=== PATIENT | male | born 1975 | race African-American/Black ===

== ENCOUNTER 2019-04-28 11:43 | Observation (INO) ==
[2019-04-28] MEDS ORDERED: ASPIRIN PO ONE (11:58)
[2019-04-28] MEDS ORDERED: CARDIZEM IV ONE (11:58)
[2019-04-28] MEDS ORDERED: NITROGLYCERIN TOP ONE (11:58)
[2019-04-28] MEDS ORDERED: LOPRESSOR PO ONE (11:58)
--- NOTE | 2019-04-28 12:04 | EKG Report ---
Test Performed on : 04/28/2019 11:42:21 AM Test Reason : cp Blood Pressure : / mmHG Vent. Rate : 125 BPM Atrial Rate : 119 BPM P-R Int : 000 ms QRS Dur : 090 ms QT Int : 282 ms P-R-T Axes : 000 -45 030 degrees QTc Int : 407 ms Atrial fibrillation. with rapid ventricular response. Pulmonary disease pattern Left anterior fascicular block Abnormal ECG No previous ECGs available Unconfirmed Result
[2019-04-28 12:14] LABS: BASO# 0.06 X1000 (0.0-0.2); BASO% 0.5 % (0.0-0.8); EOS# 0.14 X1000 (0.0-0.7); EOS% 1.2 % (0.0-10.0); HEMATOCRIT 51.8 % (42.0-52.0); HEMOGLOBIN 16.7 g/dL (14.0-18.0); IMM GRAN# 0.05 X1000 (0.0-0.04); IMM GRAN% 0.4 % (0.0-0.5); LYMPH# 4.61 X1000 (1.2-3.4); LYMPH% 39.6 % (20.5-51.1); MCH 25.7 PG (27-31); MCHC 32.2 g/dL (33-37); MCV 79.7 FL (81-99); MONO# 1.28 X1000 (0.11-0.59); MPV 9.5 FL (7.4-10.4); NEUT% 47.3 % (42.2-75.2); PLT 319 X1000 (130-400); RDW 14.6 % (11.5-14.5); WBC 11.64 X1000 (4.8-10.8)
--- NOTE | 2019-04-28 12:19 | Diag Imaging Result Doc PS360 ---
CHEST-PORTABLE - 04/28/2019 INDICATION: cp COMPARISON: 01/24/2011 FINDINGS: There is a trace area of linear atelectasis in the left midlung. The lungs are clear. Heart size is normal. No pneumothorax or pleural effusion. IMPRESSION: No acute disease. Electronically signed by Kris Gomez 04/28/2019 12:17 PM
[2019-04-28 12:23] LABS: URINE SOURCE CLEAN CATCH
[2019-04-28 12:23] LABS: INR 0.91; PROTIME 12.4 Seconds (11.0-16.0)
[2019-04-28 12:26] LABS: AGAP 12; ALB/GLOB RATIO 1.3; ALBUMIN 4.3 g/dL (3.5-5.0); ALKALINE PHOSPHATASE 79 U/L (32-122); BUN 9 mg/dL (8-22); CALCIUM 9.6 mg/dL (8.8-10.2); CHLORIDE 103 mmol/L (98-107); COSMO 278; CREATININE 1.1 mg/dL (0.7-1.2); ESTIMATED GFR > 60; GLUCOSE 91 mg/dL (70-104); GOT 24 U/L (10-34); GPT 40 U/L (10-44); SODIUM 140 mmol/L (136-145); TCO2 25 mmol/L (25-35); TOTAL BILIRUBIN 0.47 mg/dL (0.20-1.00); TOTAL PROTEIN 7.5 g/dL (6.3-8.3)
[2019-04-28 12:29] LABS: CK PROFILE 381 U/L (24-204)
[2019-04-28 12:33] LABS: BILIRUBIN URINE NEGATIVE (NEGATIVE); BLOOD URINE NEGATIVE (NEGATIVE); COLOR YELLOW; GLUCOSE URINE NEGATIVE (NEGATIVE); KETONE URINE NEGATIVE (NEGATIVE); LEUKOCYTES URINE NEGATIVE (NEGATIVE); NITRITE URINE NEGATIVE (NEGATIVE); PH URINE 6.5; PROTEIN URINE NEGATIVE (NEGATIVE); SP GRAVITY URINE 1.014; TURBIDITY URINE CLEAR (CLEAR); UR EPITHELIAL CELLS <10 /HPF (<10); URINE BACTERIA NEGATIVE /HPF; URINE RBC <10 /HPF (<10); URINE WBC <10 /HPF (<10); UROBILINOGEN URINE NORMAL (NORMAL)
[2019-04-28 12:35] LABS: UR AMPHETAMINES QUAL NONE DETECTED (NONE DETECT); UR BARBITUATES QUAL NONE DETECTED (NONE DETECT); UR BENZODIAZEPIN QUAL NONE DETECTED (NONE DETECT); UR CANNABINOIDS QUAL NONE DETECTED (NONE DETECT); UR COCAINE QUAL NONE DETECTED (NONE DETECT); UR METHADONE QUAL NONE DETECTED (NONE DETECT); UR OPIATES QUAL NONE DETECTED (NONE DETECT); UR OXYCODONE QUAL NONE DETECTED (NONE DETECT); UR PCP QUAL NONE DETECTED (NONE DETECT)
[2019-04-28 12:54] LABS: CK INDEX 0.4 (0.0-2.5); CK-MB 1.61 ng/mL (0.0-5.0)
[2019-04-28] MEDS ORDERED: LOVENOX 1 MG/KG SUBQ ONE (13:30)
[2019-04-28] MEDS ORDERED: TYLENOL PO ONE (13:46)
--- NOTE | 2019-04-28 13:49 | PROVIDER DOCUMENTATION ---
This chart was entered by Chacha Elizalde Scribe, acting as scribe for Juma Mason MD. HPI-Cardiac General - General Chief Complaint: Palpitations Stated Complaint: CHEST PAIN Time Seen by Provider: 04/28/19 11:50 Source: patient Allergies/Adverse Reactions: Patient Allergies Allergy/AdvReac Type Severity Reaction Status Date / Time No Known Allergies Allergy Verified 04/28/19 11:55 Home Medications: Home Medication List Medication Instructions Recorded Confirmed Last Taken Type Cyclobenzaprine [Flexeril] 10 mg PO TID #12 tablet 09/24/12 Unknown Rx Ketorolac [Toradol] 10 mg PO Q6H PRN PRN #15 tablet 09/24/12 Unknown Rx Hydrocodone/APAP 5 mg/325 mg 1 ea PO Q6H PRN PRN #12 tab 08/17/18 Unknown Rx [[place]-5] Methocarbamol [Robaxin] 500 mg PO TID PRN #20 tab 08/17/18 Unknown Rx Naproxen [Naprosyn] 500 mg PO BID #20 tab 08/17/18 Unknown Rx - History of Present Illness-Cardiac Nature of Presenting Problem: 44yom presents to ED cc heart palpitations, SOB while at work this morning and elevated blood pressure for 1 week. Pt reports he saw his PCP last week for elevated b/p and was given hydrochlorthiazide, has been keeping track of b/p and it was trending down but today at work he felt his heart beating hard, he got lightheaded and SOB so he came to ED. Pt denies drugs or energy drinks. Location: reports: central Quality of Pain: reports: pressure, tightness Severity in ED: moderate Onset/Duration: this morning Timing: still present Context/Activities at Onset: reports: moderate activity (was at work) Modifying Factors: improves with: nothing Palpitation Quality: irregular History of arrythmia: reports: none Recent use of:: reports: caffeine (drank 1 coke this morning) Nitro Today/Relief: reports: provided by ED (nitro paste) Aspirin Treatment Today: reports: 325 mg x 1, provided by ED Prior Chest Pain/Cardiac Workup: reports: no prior chest pain Associated Symptoms: reports: shortness of breath Similar Symptoms Previously?: No Recently Seen Here or By Another Healthcare Provider: Yes (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 denies: chills, fever Eyes: reports: no symptoms reported Ears, Nose, Mouth & Throat: reports: no symptoms reported Cardiovascular: reports: see HPI, chest pain, irregular heart rate, palpitations Respiratory: reports: see HPI, shortness of breath. denies: cough, wheezing Gastrointestinal: reports: no symptoms reported Genitourinary: reports: no symptoms reported Musculoskeletal: reports: no symptoms reported Integumentary: reports: no symptoms reported Neurological: reports: see HPI, dizziness/vertigo Psychiatric: reports: no symptoms reported Endocrine: reports: no symptoms reported Hematologic/Lymphatic: reports: no symptoms reported Allergic/Immunologic: reports: no symptoms reported All Other Systems: Reviewed and Negative Past History - Adult - PAST MEDICAL HISTORY-ADULT Review of Records: reports: Nursing Assessment Review, Medications Reviewed, Social history reviewed & non-contributory. Major Childhood Illnesses: reports: denies history Cardiovascular: reports: denies history Respiratory: reports: denies history Gastrointestinal: reports: denies history Obstetrical/Gynecological: reports: denies history Genitourinary: reports: denies history Musculoskeletal: reports: denies history Neurological: reports: denies history Endocrine/Immune: reports: denies history Other Conditions: reports: denies history - IMMUNIZATION STATUS Childhood Immunizations: See Nurse Assessment Flu Vaccine: See Nurse Assessment - FAMILY HISTORY Family History: reviewed, not pertinent - SOCIAL HISTORY Smoking: cigarettes, greater than 1 pack/day Provider spent 3-5 mins advising pt. on dangers of tobacco.: Discussed manners to quit use, and f/u contacts for add'l counseling. Physical Exam-General - PHYSICAL EXAM-ADULT Initial Vital Signs Reviewed: Yes - CONSTITUTIONAL General Appearance: appears well, alert. negative: anxious, combative - EYES Eyes: PERRL/EOMI, pink conjunctivae. negative: photophobia - HEAD, EARS, NOSE, MOUTH & THROAT HENMT: normocephalic/atraumatic, moist mucous membranes. negative: angioedema - RESPIRATORY Respiratory: chest non-tender, lungs clear, normal breath sounds. negative: stridor, wheezing - CARDIOVASCULAR Cardiovascular: normal peripheral pulses, no edema, tachycardia, irregularly irregular. negative: bradycardia - MUSCULOSKELETAL Extremity: normal inspection. negative: deformity - SKIN Integumentary: normal color. negative: diaphoresis, jaundice - PSYCHIATRIC Psych/Mental Status: normal mood/affect, oriented x 3. negative: anxious, disheveled - HEART Score HEART Score: History: Slightly Suspicious HEART Score: ECG: Non-Specific Repolarization Disturbance/LBBB/PM HEART Score: Age: < or = 45 Years HEART Score: Risk Factors for Atherosclerotic Disease: 1 or 2 Risk Factors HEART Score: Troponin: < or = Normal Limit Total HEART Score:: 2 Progress - PLAN OF CARE/RESULTS Progress/Plan/Lab Results: Vital Signs - 8 hr 04/28/19 11:49 04/28/19 11:50 04/28/19 11:53 Temperature 97.8 F Pulse Rate 139 H 130 H Respiratory Rate 26 H 22 Blood Pressure 134/79 134/79 O2 Sat by Pulse Oximetry 99 99 99 04/28/19 12:00 04/28/19 12:03 04/28/19 12:11 Temperature Pulse Rate 132 H 123 H 135 H Respiratory Rate 27 H 19 22 Blood Pressure 160/88 157/93 O2 Sat by Pulse Oximetry 100 100 99 04/28/19 12:15 04/28/19 12:30 Temperature Pulse Rate 144 H 93 H Respiratory Rate 23 Blood Pressure O2 Sat by Pulse Oximetry 95 96 Laboratory Results - last 24 hr 04/28/19 04/28/19 04/28/19 11:52 11:52 11:52 WBC 11.64 H RBC 6.50 H Hgb 16.7 Hct 51.8 MCV 79.7 L MCH 25.7 L MCHC 32.2 L RDW Std Deviation 14.6 H Plt Count 319 MPV 9.5 Immature Gran % (Auto) 0.4 Neut % (Auto) 47.3 Lymph % (Auto) 39.6 Lane % (Auto) 11.0 H Eos % (Auto) 1.2 Baso % (Auto) 0.5 Immature Gran # (Auto) 0.05 H Neut # (Auto) 5.50 Lymph # (Auto) 4.[address] # (Auto) 1.28 H Eos # (Auto) 0.14 Baso # (Auto) 0.06 PT INR Sodium Potassium Chloride Carbon Dioxide Anion Gap BUN Creatinine Estimated GFR/1.73 m2 BUN/Creatinine Ratio Glucose Calculated Osmolality Calcium Magnesium Total Bilirubin AST ALT Alkaline Phosphatase Creatine Kinase Creatine Kinase Index CK-MB (CK-2) Troponin T [id number] Pept Total Protein Albumin Globulin Albumin/Globulin Ratio TSH 0.89 Urine Source Urine Color Urine Turbidity Urine pH Ur Specific Reserve Urine Protein Ur Glucose (Stick) Ur Ketones (Stick) Urine Blood Urine Nitrite Urine Bilirubin Urobilinogen Dipstick Urine Leukocytes Urine WBC (Auto) Urine RBC (Auto) U Epithel Cells (Auto) Urine Bacteria (Auto) Urine Opiates Screen Ur Oxycodone Screen Ur Methadone, Qual Ur Barbiturates Screen Ur Phencyclidine Scrn Ur Amphetamines Screen U Benzodiazepines Scrn Urine Cocaine Screen U Cannabinoids Screen Plasma/Serum Ethyl Alc 04/28/19 04/28/19 04/28/19 11:52 11:52 11:52 WBC RBC Hgb Hct MCV MCH MCHC RDW Std Deviation Plt Count MPV Immature Gran % (Auto) Neut % (Auto) Lymph % (Auto) Lane % (Auto) Eos % (Auto) Baso % (Auto) Immature Gran # (Auto) Neut # (Auto) Lymph # (Auto) Lane # (Auto) Eos # (Auto) Baso # (Auto) PT 12.4 INR 0.91 Sodium 140 Potassium 4.0 Chloride 103 Carbon Dioxide 25 Anion Gap 12 BUN 9 Creatinine 1.1 Estimated GFR/1.73 m2 > 60 BUN/Creatinine Ratio 8 Glucose 91 Calculated Osmolality 278 Calcium 9.6 Magnesium 2.0 Total Bilirubin 0.47 AST 24 ALT 40 Alkaline Phosphatase 79 Creatine Kinase 381 H Creatine Kinase Index 0.4 CK-MB (CK-2) 1.61 Troponin T [id number] Pept < 5 L Total Protein 7.5 Albumin 4.3 Globulin 3.2 Albumin/Globulin Ratio 1.3 TSH Urine Source Urine Color Urine Turbidity Urine pH Ur Specific Reserve Urine Protein Ur Glucose (Stick) Ur Ketones (Stick) Urine Blood Urine Nitrite Urine Bilirubin Urobilinogen Dipstick Urine Leukocytes Urine WBC (Auto) Urine RBC (Auto) U Epithel Cells (Auto) Urine Bacteria (Auto) Urine Opiates Screen Ur Oxycodone Screen Ur Methadone, Qual Ur Barbiturates Screen Ur Phencyclidine Scrn Ur Amphetamines Screen U Benzodiazepines Scrn Urine Cocaine Screen U Cannabinoids Screen Plasma/Serum Ethyl Alc 04/28/19 04/28/19 04/28/19 11:52 12:20 12:20 WBC RBC Hgb Hct MCV MCH MCHC RDW Std Deviation Plt Count MPV Immature Gran % (Auto) Neut % (Auto) Lymph % (Auto) Lane % (Auto) Eos % (Auto) Baso % (Auto) Immature Gran # (Auto) Neut # (Auto) Lymph # (Auto) Lane # (Auto) Eos # (Auto) Baso # (Auto) PT INR Sodium Potassium Chloride Carbon Dioxide Anion Gap BUN Creatinine Estimated GFR/1.73 m2 BUN/Creatinine Ratio Glucose Calculated Osmolality Calcium Magnesium Total Bilirubin AST ALT Alkaline Phosphatase Creatine Kinase Creatine Kinase Index CK-MB (CK-2) Troponin T < 0.010 [id number]-Iglgygrsouu Pept Total Protein Albumin Globulin Albumin/Globulin Ratio TSH Urine Source CLEAN CATCH Urine Color YELLOW Urine Turbidity CLEAR Urine pH 6.5 Ur Specific Reserve 1.014 Urine Protein NEGATIVE Ur Glucose (Stick) NEGATIVE Ur Ketones (Stick) NEGATIVE Urine Blood NEGATIVE Urine Nitrite NEGATIVE Urine Bilirubin NEGATIVE Urobilinogen Dipstick NORMAL Urine Leukocytes NEGATIVE Urine WBC (Auto) <10 Urine RBC (Auto) <10 U Epithel Cells (Auto) <10 Urine Bacteria (Auto) NEGATIVE Urine Opiates Screen NONE DETECTED Ur Oxycodone Screen NONE DETECTED Ur Methadone, Qual NONE DETECTED Ur Barbiturates Screen NONE DETECTED Ur Phencyclidine Scrn NONE DETECTED Ur Amphetamines Screen NONE DETECTED U Benzodiazepines Scrn NONE DETECTED Urine Cocaine Screen NONE DETECTED U Cannabinoids Screen NONE DETECTED Plasma/Serum Ethyl Alc Orders Category Date Time Status Nursing- Obtain EKG once Care 04/28/19 11:57 Active Nursing- Obtain EKG once Care 04/28/19 13:27 Active Saline Loc NOW Care 04/28/19 11:57 Active CHEST-PORTABLE [RAD] Stat Exams 04/28/19 11:58 Completed ALCOHOL BLOOD Stat Lab 04/28/19 11:52 Completed CBC WITH ELECTRONIC DIFF [HEME] Stat Lab 04/28/19 11:52 Completed CK PROFILE [SP CHEM] Stat Lab 04/28/19 11:52 Completed COMPREHENSIVE METABOLIC PANEL [CHEM] Stat Lab 04/28/19 11:52 Completed MAGNESIUM [CHEM] Stat Lab 04/28/19 11:52 Completed PRO B-NATRIURETIC PEPTIDE Stat Lab 04/28/19 11:52 Completed PROTIME WITH INR [COAG] Stat Lab 04/28/19 11:52 Completed TROPONIN T Stat Lab 04/28/19 11:52 Completed TSH Stat Lab 04/28/19 11:52 Completed URINALYSIS W/POSS RFLX CULT [URINALYSIS] Stat Lab 04/28/19 12:20 Completed URINE DRUG SCREEN Stat Lab 04/28/19 12:20 Completed Acetaminophen [Tylenol] Med 04/28/19 13:46 Once 1,000 mg PO NOW ONE Aspirin Med 04/28/19 11:58 Discontinued 325 mg PO NOW ONE Diltiazem [Cardizem] Med 04/28/19 11:58 Discontinued 25 mg IV NOW ONE Enoxaparin 1 mg/kg [Lovenox 1 mg/kg] Med 04/28/19 13:30 Discontinued 1 each SUBQ NOW ONE Metoprolol [Lopressor] Med 04/28/19 11:58 Discontinued 25 mg PO NOW ONE Nitroglycerin Med 04/28/19 11:58 Discontinued 0.5 inch TOP NOW ONE EKG [EKG] Stat Ther 04/28/19 11:57 Draft EKG [EKG] Stat Ther 04/28/19 13:27 Ordered Result Diagrams: 04/28/19 11:52 04/28/19 11:52 - REASSESSMENT Reassessment #1 Time Reassessed: 13:47 Status: improving (Afib rate is controlled, but he is still in AFIB, despite IV cardizem and po metoprolol. Also given ASA po and Nitropaste. Given tylenol for NTG headache. Given SubQ Lovenox) - EKG 1 Time of EKG reading by physician:: 11:59 EKG Read and Signed by:: Juma Mason EKG Interpretation (*Must complete 3 of following elements*): Abnormal (left anterior fascicular block) Rate: 125 Rhythm: Afib w/ RVR [place]: normal QRS: other OK Interval: normal ST Wave: normal Prior EKG Comparison: no prior EKG - XRAY 1 XRAY: Bilateral XRAY Study: Chest Impression: See EMR Report (IMPRESSION: No acute disease. Electronically signed by Kris Gomez 04/28/2019 12:17 PM) - CONSULTS/PCP/HOSPITALIST Notification #1 *Consult/PCP/Hospitalist*: Marlyn/[employer] for Hospitalist paged at [phone]; returned at [phone] Consult Disposition: Admit (accpeted pt) Departure - Departure Date of Disposition Decision: 04/28/19 Time of Disposition Decision: 13:42 DIAGNOSIS: Chest pain of uncertain etiology, New onset a-fib, Atrial fibrillation with rapid ventricular response, Tobacco use disorder Disposition: ADMITTED INPATIENT 09 Certified Medical Emergency: Emergent Condition: Fair Additional Freetext Instructions: ED Follow Up Instructions: You have been treated by a care provider in the Emergency Department. These instructions are being provided to you so you can have an understanding of how to care for yourself upon discharge. Upon discharge from the Emergency Department, you are responsible for making arrangements for follow-up care by a physician of your choice. Take all prescribed medications as directed. Return to the Emergency Department immediately for any new or worsening symptoms. You may call the Physician Referral phone number at [phone] to obtain a list of Physicians who are taking new patients. Referrals and Follow-Ups: Gee Jiménez MD [Primary Care Provider] - Discharge Education: Steps to Quit Smoking, [id number] - Critical Care Note This patient required my direct & personal management of CC.: Yes Total Time (mins): 35 Critical Care Statement: This patient required my direct personal management to treat or rule out processes, the absence of which, could potentiallly result in sudden, clinically significant life or limb threatening deterioration. Attestation - Physician/ PAOLA Attestation Patient care was provided by Advanced Practice Provider:: No The physician spent face to face time with patient:: Yes Advanced Practice Provider documentation review:: Supervising physician onsite and consulted in the evaluation and care of this patient. The physician did have a face to face encounter with the patient. This chart was documented by the indicated scribe, (Chacha Elizalde Scribe) and accurately reflects the services I performed and decisions made by me, Juma Mason MD, as attested by the provider's signature.
--- NOTE | 2019-04-28 14:03 | ED EKG INTERP ---
EKG Interpretation - EKG Time of EKG reading by physician:: 14:02 EKG Read and Signed by:: Juma Mason EKG Interpretation (*Must complete 3 of following elements*): Normal Rate: 70 Rhythm: NSR - rhythm just converted [place]: left QRS: normal [place] Interval: normal ST Wave: normal Prior EKG Comparison: changes noted Attestation - Physician/ PAOLA Attestation Patient care was provided by Advanced Practice Provider:: No The physician spent face to face time with patient:: Yes Advanced Practice Provider documentation review:: Supervising physician onsite and consulted in the evaluation and care of this patient. The physician did have a face to face encounter with the patient.
[2019-04-28] MEDS ORDERED: LOVENOX SUBQ ONE (14:15)
--- NOTE | 2019-04-28 14:15 | EKG Report ---
Test Performed on : 04/28/2019 1:55:15 PM Test Reason : rhythm check Blood Pressure : / mmHG Vent. Rate : 070 BPM Atrial Rate : 070 BPM P-R Int : 180 ms QRS Dur : 090 ms QT Int : 404 ms P-R-T Axes : 019 -38 015 degrees QTc Int : 436 ms Normal sinus rhythm. Left axis deviation Abnormal ECG When compared with ECG of 28-APR-2019 11:42, (Unconfirmed) Sinus rhythm. has replaced Atrial fibrillation. Vent. rate has decreased BY 55 BPM Unconfirmed Result
[2019-04-28] MEDS ORDERED: TYLENOL PO PRN (15:42)
[2019-04-28] MEDS ORDERED: ZOFRAN IV PRN (15:42)
--- NOTE | 2019-04-28 16:50 | HISTORY AND PHYSICAL ---
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 He described it as kind of a dull pressure pain in his throat, kind of radiated down the middle of the sternum. Denied any radiation to his left arm or shoulder. He did have diaphoresis and he felt his heart was beating hard. Chest pain seemed to resolve in about 30 minutes. They called the paramedics and he was brought here. He has no further chest pain. PAST MEDICAL HISTORY: Really unremarkable except for: 1. Hypertension. 2. Apparently treated for gastric ulcers last year. PAST SURGICAL HISTORY: No surgical history. ALLERGIES: No known drug allergies. FAMILY HISTORY: He is not aware of any medical issues, especially with heart problems. SOCIAL HISTORY: Works. He says he drinks occasional alcohol. REVIEW OF SYSTEMS: General: No weight gain or loss. No fever or chills. HEENT: Unremarkable. Respiratory: No increased work of breathing or dyspnea. Cardiovascular: No chest pain or tachy palpitation GI/: Unremarkable. Musculoskeletal/Neurologic: No significant complaints. Endocrinologic/hemologic: No significant history. PHYSICAL EXAMINATION: VITAL SIGNS: Temperature 97.8 degrees, pulse 68, respirations 24, and blood pressure 102/56. Weight 195 pounds. Height 5 feet 7 inches. HEENT: Pupils are equal and round. LUNGS: Clear in all lung burgos. NECK: CVP less than 6 cm. CARDIOVASCULAR: Regular rhythm and rate without murmur or S3. ABDOMEN: Soft, nondistended. VASCULAR: Carotid, radial, femoral pulses 2+ and symmetrical. Note, his pulse felt regular. SKIN: Warm and dry. DIAGNOSTIC STUDIES: His EKG shows atrial fibrillation and so he is in atrial fibrillation and he did have a rapid ventricular response about 1:30. LABORATORY DATA: White count 11,640, hematocrit is 51, platelet count 319,000. Sodium 140, potassium 4.0, chloride 103, BUN 12, creatinine 1.1, magnesium 2.0. AST 24, ALT is 40, alkaline phosphatase is 79. ProBNP was less than 5. Troponin less than 0.01. Urine drug screen was negative. Urinalysis unremarkable. Chest x-ray, no acute disease. ASSESSMENT AND PLAN: 1. Chest pain which he does have some risk factors. It did happen during exertion. So we will check serial cardiac enzymes and EKGs. 2. Atrial fibrillation. Apparently new onset, not sure how long it has been going on. We will put him on a little bit of beta rudi at this time, metoprolol 25 mg q.12. Ask cardiology to help. 3. History of hypertension. Blood pressure at present 102/56. We will put him on an aspirin. Consider testing for coronary insufficiency. cc: Robin Dennison MD
--- NOTE | 2019-04-28 17:02 | CARDIOLOGY CONSULTATION ---
DATE: 04/28/2019 HISTORY OF PRESENT ILLNESS: This 44-year-old -[place] gentleman has a history of hypertension. In the last 1 year he has been having episodes of headaches with hypertension as well. Was started on hydrochlorothiazide and his blood pressure was better. Today he had an episode of palpitations and chest discomfort which he describes as a pressure- like sensation with a squeezing sensation radiating to his neck and jaw. He also had palpitations and anxiety. He came to the emergency room, was noted to be in atrial fibrillation with rapid ventricular rate. Was given diltiazem IV and Lopressor p.o. He is back in sinus rhythm. His electrocardiogram revealed normal sinus rhythm with J-point elevation noted in V1, V2. His first set of cardiac enzymes were negative. Prior to this episode he has not had any exertional component of chest pain. He has been otherwise very active. He has not had palpitations before either. He smokes about a pack of cigarettes a day. There is no history of alcohol or illicit drug abuse. REVIEW OF SYSTEM: A 14-point review of systems was done. GI System: There is no history of nausea, vomiting, diarrhea. There is no history of hematemesis or melena. Central nervous system: No focal weakness to suggest a CVA or TIA. system: There is no dysuria or hematuria. Respiratory system: There is no history of cough, expectoration, hemoptysis. There is no history of fevers or chills. PAST MEDICAL HISTORY: Recent diagnosis of hypertension. PHYSICAL EXAMINATION: Vital Signs: Blood pressure at the present time was 136/101, subsequently after medication blood pressure 102/56. Cardiovascular system: First and second heart sounds were heard. There was no S3 gallop. Respiratory System: Normal air entry. There are no crepitations or rhonchi. Abdomen: Soft, nontender. There was no guarding or rigidity. Bowel sounds were heard. Central nervous system: Alert and oriented. Was moving all 4 extremities. Extremities: Examination of extremities revealed no pedal edema. HEENT: Atraumatic, normocephalic. Pupils were equal and reacting to light. LABORATORY: Sodium 140, potassium 4.0, BUN 9, creatinine 1.1. First set of cardiac enzymes are negative. TSH 0.89. Urine and tox screen was negative. Hematology: WBC 11.64, hemoglobin 16.7, hematocrit 51, platelet count of 319,000. ASSESSMENT AND PLAN: Mr. Edmund Joy is a 44-year-old Afro-[place] gentleman with a history of hypertension, comes with complaints of having chest discomfort and palpitations, was noted to be in atrial fibrillation. Reverted to sinus rhythm with Cardizem and beta- rudi. First set of cardiac enzymes were negative. His electrocardiogram was abnormal with J-point elevation in V1, V2. He is not having any chest pain at the present time. PLAN: 1. We will do serial cardiac enzymes. 2. We will get an echocardiogram. Please see detailed report. There is mild LV dysfunction noted. Given this, we will start him on Cozaar 50 mg a day. 3. If cardiac enzymes are negative we will plan for a Cardiolite stress test to assess for and rule out ischemia. I suspect his LV dysfunction could be secondary to his untreated hypertension. His blood pressure had gone up to 170 recently. Thank you for the consult. We will follow hospital course. cc: Harry Rhodes MD MTDJake
[2019-04-28] MEDS: LOPRESSOR PO SCH (21:13)
[2019-04-28 22:03] LABS: CK INDEX 0.6 (0.0-2.5); CK-MB 1.6 ng/mL (0.0-5.0)
[2019-04-29 03:42] LABS: INR 0.91; PROTIME 12.3 Seconds (11.0-16.0)
[2019-04-29 03:43] LABS: PTT 35.7 Seconds (22.3-41.8)
[2019-04-29 04:01] LABS: AGAP 10; ALB/GLOB RATIO 1.7; ALBUMIN 4.1 g/dL (3.5-5.0); ALKALINE PHOSPHATASE 98 U/L (32-122); BUN 13 mg/dL (8-22); CALCIUM 9.3 mg/dL (8.8-10.2); CHLORIDE 102 mmol/L (98-107); COSMO 279; CREATININE 1.3 mg/dL (0.7-1.2); ESTIMATED GFR > 60; GLUCOSE 127 mg/dL (70-104); GOT 21 U/L (10-34); GPT 39 U/L (10-44); POTASSIUM 4.1 mmol/L (3.5-5.1); SODIUM 139 mmol/L (136-145); TCO2 27 mmol/L (25-35); TOTAL BILIRUBIN 0.24 mg/dL (0.20-1.00); TOTAL PROTEIN 6.5 g/dL (6.3-8.3)
[2019-04-29 04:07] LABS: BASO# 0.08 X1000 (0.0-0.2); BASO% 0.8 % (0.0-0.8); EOS# 0.15 X1000 (0.0-0.7); EOS% 1.5 % (0.0-10.0); HEMATOCRIT 49.3 % (42.0-52.0); HEMOGLOBIN 15.9 g/dL (14.0-18.0); IMM GRAN# 0.03 X1000 (0.0-0.04); IMM GRAN% 0.3 % (0.0-0.5); LYMPH# 4.23 X1000 (1.2-3.4); LYMPH% 42.5 % (20.5-51.1); MCH 25.9 PG (27-31); MCHC 32.3 g/dL (33-37); MCV 80.3 FL (81-99); MONO# 0.86 X1000 (0.11-0.59); MONO% 8.6 % (1.7-9.3); MPV 9.3 FL (7.4-10.4); NEUT% 46.3 % (42.2-75.2); PLT 304 X1000 (130-400); RBC 6.14 XMIL (4.7-6.1); RDW 14.3 % (11.5-14.5); WBC 9.95 X1000 (4.8-10.8)
[2019-04-29 05:10] LABS: CK INDEX 0.7 (0.0-2.5); CK-MB 1.61 ng/mL (0.0-5.0)
[2019-04-29] MEDS ORDERED: LOVENOX SUBQ SCH (08:00)
--- NOTE | 2019-04-29 08:31 | ECHO REPORT ---
ORDER DATE: 04/28/2019 MEASUREMENTS: Septal thickness 1.3, left ventricular internal diameter in diastole 5.0, posterior wall thickness 1.2, left ventricular internal diameter in systole 4.1, aortic root 3.1, left atrium 2.7. SUMMARY: 1. Fair quality study. 2. Aortic valve is trileaflet and opens normally on 2-dimensional images. Peak gradient across the aortic valve is less than 5 mmHg. Mitral, tricuspid, and pulmonic valves are without evidence of structural abnormality, with trace tricuspid regurgitation. The aortic root is normal in size. 3. Normal left ventricular chamber size with mild concentric left ventricular hypertrophy is demonstrated. Estimated left ventricular ejection fraction is approximately 35% in the setting of global hypokinesis. Left atrium, right atrium, right ventricle are normal in size with grossly preserved right ventricular systolic function. 4. Small posterior pericardial effusion is demonstrated, without echocardiographic evidence of hemodynamic impact. 5. Appearance of inferior vena cava suggests normal central venous pressure. CONCLUSIONS: 1. No significant valvular abnormality evident. 2. Mild concentric left ventricular hypertrophy with estimated left ventricular ejection fraction of approximately 35% in the setting of global hypokinesis. 3. Small posterior pericardial effusion. cc: MD Marlyn Huertas CRNP
--- NOTE | 2019-04-29 08:34 | EKG Report ---
Test Performed on : 04/29/2019 07:25:24 AM Test Reason : chest pain Blood Pressure : / mmHG Vent. Rate : 066 BPM Atrial Rate : 066 BPM P-R Int : 178 ms QRS Dur : 090 ms QT Int : 410 ms P-R-T Axes : 033 -41 018 degrees QTc Int : 429 ms Normal sinus rhythm. Left axis deviation Abnormal ECG When compared with ECG of 28-APR-2019 13:55, (Unconfirmed) No significant change was found Confirmed by Abdirashid JOHNSON, Rusty Arreguin ([id number]) on 04/30/2019 7:42:22 AM
[2019-04-29] MEDS ORDERED: COZAAR PO SCH (09:00)
[2019-04-29] MEDS ORDERED: ASPIRIN PO SCH (09:00)
[2019-04-29 11:39] VITALS: BP 138/75
[2019-04-29] MEDS: LOPRESSOR PO SCH (12:07)
[2019-04-29] MEDS ORDERED: FLU VACCINE IM ONE (14:01)
--- NOTE | 2019-04-29 14:42 | Diag Imaging Result Document ---
PROCEDURE NAME: MYOCARDIAL PERF SCAN, STR/REST - 04/29/2019 INDICATION: Chest pain, atrial fibrillation. FINDINGS: ELIGIO PROTOCOL STRESS RESULTS: 1. Baseline EKG shows sinus rhythm. 2. Patient exercised for a total of 9 minutes 20 seconds achieving peak heart rate of 151. This was 84% of age predicted max. He achieved 10.4 METS in early stage IV of the Eligio protocol. Exercise capacity was 90% of age and sex predicted exercise capacity. 3. Appropriate blood pressure response to exercise. 4. Test was terminated due to fatigue. 5. There were no anginal complaints occurring during the course of study. 6. No ischemic related EKG changes. 7. Patient had a couplet and triplet occurring during exercise, but otherwise no significant arrhythmias. PERFUSION IMAGING RESULTS: 1. No evidence of abnormal extracardiac uptake. 2. TID ratio 0.84. 3. Perfusion imaging demonstrates a small size, mild intensity defect in the mid anterior and basal anterior segments. This is extremely narrow and improves markedly from rest to stress imaging suggesting the possibility of soft tissue attenuation. There is no clear evidence of ischemic changes. 4. Normal ejection fraction of 57%. The end-diastolic volume is 117. End systolic volume 50. Normal wall motion. cc: MD Barbie Damian PA
--- NOTE | 2019-04-29 16:46 | DISCHARGE SUMMARY ---
ADMISSION DATE: 04/28/2019 DISCHARGE DATE: 04/29/2019 This is a 44-year-old who is a patient of Dr. Gee Jiménez. He was working doing manual labor and noticed some chest pain about 8:30. This was kind of a dull pressure started in the middle of his sternum, did not radiate into his left arm. He did have some diaphoresis and his heart was beating hard. His cardiac enzymes were negative. We did notice he had an atrial fibrillation in the emergency room, but he seemed to convert fairly quickly. We put him on beta rudi 25 mg q. 12 and converted back to sinus rhythm. He does have a history of hypertension. I am not sure if he has been taking his medications. Cardiology evaluated and did a myocardial perfusion scan, saw no evidence of perfusion deficit, saw no evidence of ischemia, and felt he could be discharged home. He wanted to go home. We also state that he had an echocardiogram and revealed no significant valvular abnormality, mild concentric left ventricular hypertrophy, did show a left ventricular ejection fraction down to 35% with global hypokinesis, so significant systolic dysfunction. He was discharged home to follow up with Cardiology. DISCHARGE MEDICATIONS: He will be on aspirin 81 mg a day, metoprolol 25 mg twice a day, and Cozaar 50 mg a day. He is to stop his hydrochlorothiazide. cc: Robin Dennison MD
== END 2019-04-29 14:20 | disposition home or self-care (01) ==
LOC: SUPCPDRO → ED 11:43 → 2N 11:44 → INTOOBSV 11:44
PROVIDERS: ATTEND Emergency Medicine